=== PATIENT | male | born 1985 | race Two or more races ===

== ENCOUNTER 2023-04-30 18:33 | Emergency (ER) | payer BC ==
[~2023-04-30] VITALS: Ht 182.9 cm; Wt 92.5 kg
== END 2023-04-30 21:57 | disposition home or self-care (01) ==
LOC: ER 18:33
DX: B34.9 Viral infection, unspecified (principal); R51.9 Headache, unspecified; Z20.822 Contact with and (suspected) exposure to COVID-19